=== PATIENT | male | born 1955 | race Caucasian/White ===

== ENCOUNTER 2023-06-27 09:00 | Outpatient (OUT) | payer MEDICARE, SELFPAY ==
--- NOTE | 2023-06-27 09:10 | ECG_ITS ---
The [facility] Test Date: 2023-06-27 Pat Name: CALEB ACUNA Department: Room: - Gender: Male [employer]: : 1955 Requested By: ОЛЬГА PATEL Order Number: [id number] Reading MD: MATTI HUMPHRIES Measurements Intervals Alpha Rate: 63 P: 46 NC: 211 QRS: 26 QRSD: 113 T: 47 QT: 463 QTc: 477 Interpretive Statements SINUS RHYTHM WITH FIRST DEGREE AV BLOCK INCOMPLETE RIGHT BUNDLE BRANCH BLOCK [90+ ms QRS DURATION, TERMINAL R IN V1/V2, 40+ ms S IN I/aVL/V4/V5/V6] PROLONGED QT INTERVAL No previous ECG available for comparison Electronically Signed On 06-28-2023 7:01:55 EST by MATTI HUMPHRIES
--- NOTE | 2023-06-27 09:59 | P.GSHP_ITS ---
History of Present Illness History of Present Illness Chief complaint: prostate cancer Narrative: Patient presents for preadmission testing. The patient states he has prostate cancer and is completed radiation is now scheduled for radium seed implant. He states he has not been having any dysuria or hematuria but continues to have nocturia. He denies nausea, vomiting, fever, or any other complaints. Review of Systems ROS Narrative REVIEW OF SYSTEMS: Negative except as stated in HPI, ten or more systems reviewed. Constitutional: No fever , chills, weakness ENT: No sore throat or epistaxis Cardiovascular: No edema, chest pain, palpitations, or activity intolerance Respiratory: No shortness of breath, cough, or wheezing Musculoskeletal: No joint pain or swelling Gastrointestinal: No abdominal pain, constipation, diarrhea, or vomiting Genitourinary: No dysuria or hematuria Neurological: No numbness, tingling, weakness, or headache Psychiatric: No mood changes [facility] History (Updated 06/27/23 @ 09:36 by Sonia Moreno NP) Arthritis ?M19.90 - Unspecified osteoarthritis, unspecified site (ICD-10) Asthma ?J45.909 - Unspecified asthma, uncomplicated (ICD-10) Back pain ?M54.9 - Dorsalgia, unspecified (ICD-10) Bronchitis ?J40 - Bronchitis, not specified as acute or chronic (ICD-10) COVID-19 (05/29/23) ?U07.1 - COVID-19 (ICD-10) Hypertension ?I10 - Essential (primary) hypertension (ICD-10) Peripheral vascular disease ?I73.9 - Peripheral vascular disease, unspecified (ICD-10) Pneumonia ?J18.9 - Pneumonia, unspecified organism (ICD-10) Prostate cancer ?C61 - Malignant neoplasm of prostate (ICD-10) Seasonal allergies ?J30.2 - Other seasonal allergic rhinitis (ICD-10) Snores ?R06.83 - Snoring (ICD-10) Surgical History (Updated 06/27/23 @ 09:32 by Sonia Moreno NP) History of appendectomy ?Z90.49 - Acquired absence of other specified parts of digestive tract (ICD- 10) History of colonoscopy ?Z98.890 - Other specified postprocedural states (ICD-10) History of esophagogastroduodenoscopy (EGD) ?Z98.890 - Other specified postprocedural states (ICD-10) Hx of prostate biopsy ?Z98.890 - Other specified postprocedural states (ICD-10) Family History (Updated 06/27/23 @ 09:36 by Sonia Moreno NP) Other Family history of coronary artery disease Family history of diabetes mellitus Family history of heart disease Family history of myocardial infarction Social History (Updated 06/27/23 @ 09:31 by Sonia Moreno NP) Within the past year, how often did you have a drink containing alcohol: never Score interpretation: A score less than 4 is consistent with normal alcohol consumption. Smoking status: Former smoker Non-prescribed substance use: denies use Highest level of school completed/degree received: high school graduate Meds Home Medications and Allergies Home Medications Medication Instructions Recorded Confirmed Type albuterol sulfate 2.5 mg/3 mL 2.5 mg inhalation Q6H PRN 06/27/23 06/27/23 History (0.083 %) solution for nebulization shortness of breath or wheezing albuterol sulfate 90 mcg/actuation 2 inh inhalation Q4H PRN shortness 06/27/23 06/27/23 History aerosol inhaler of breath or wheezing allopurinol 100 mg tablet 100 mg PO DAILY 06/27/23 06/27/23 History aspirin 81 mg tablet,delayed 81 mg PO DAILY 06/27/23 06/27/23 History release (Adult Aspirin Regimen) calcium 600 mg capsule mg PO 06/27/23 History cholecalciferol (vitamin D3) 10 10 mcg PO DAILY 06/27/23 06/27/23 History mcg (400 unit) capsule enalapril maleate 10 mg tablet 10 mg PO Q24H 06/27/23 06/27/23 History fluticasone propionate 110 2 inh inhalation Q12H PRN wheezing 06/27/23 06/27/23 History mcg/actuation HFA aerosol inhaler (Flovent HFA) levocetirizine 5 mg tablet (24HR 5 mg PO DAILY 06/27/23 06/27/23 History Allergy Relief) lutein 20 mg capsule 20 mg PO DAILY 06/27/23 06/27/23 History montelukast 10 mg tablet 10 mg PO DAILY 06/27/23 06/27/23 History multivitamin (Daily Multi-Vitamin 1 tab PO DAILY 06/27/23 06/27/23 History tablet) omega 6-hpy-tve-fish oil 1,000 mg 1 cap PO DAILY 06/27/23 06/27/23 History (120 mg-180 mg) capsule (Fish Oil) tamsulosin 0.4 mg capsule 0.4 mg PO BID 06/27/23 06/27/23 History Allergies Allergy/AdvReac Type Severity Reaction Status Date / Time Penicillins Allergy Unknown Verified 06/27/23 09:25 acetaminophen [From Percocet] Allergy itch Verified 06/27/23 09:25 oxycodone [From Percocet] Allergy itch Verified 06/27/23 09:25 Exam Narrative Exam Narrative: Constitutional: Awake, alert, comfortable, well-appearing, nontoxic, interactive, vital signs as charted Head: Normocephalic, atraumatic Neck: Supple, normal appearance, normal range of motion, no meningeal signs, no lymphadenopathy Respiratory: No respiratory distress, breath sounds clear Cardiovascular: Regular rate and rhythm, strong and regular heart tones Abdomen: Nontender, normal bowel sounds, soft, no CVA tenderness Musculoskeletal: Normal gait, no swelling or edema Skin: No rashes or induration, no lesions, only visible skin inspected Neuro: No neurological deficits, normal sensation Psychiatric: Oriented ?3, normal affect Assessment and Plan Assessment and Plan (1) Prostate cancer: Plan [place] seed implant scheduled with Dr. Huffman 07/11/2023.
[2023-06-27 10:05] LABS: Hematocrit 34.9 % (42.0-54.0); Hemoglobin 11.8 g/dL (14.0-18.0); Mean Corpuscular HGB Conc 33.8 g/dL (29.9-35.2); Mean Corpuscular Hemoglobin 30.9 pg (25.9-34.0); Mean Corpuscular Volume 91.4 fL (80.0-94.0); Mean Platelet Volume 8.7 fL (9.5-13.5); Platelet Count 159 10^3/uL (150-450); Red Blood Count 3.82 10^6/uL (4.70-6.10); Red Cell Distribution Width 13.6 % (11.0-15.0); White Blood Count 7.5 10^3/uL (4.0-11.0)
[2023-06-27 10:19] LABS: Partial Thromboplastin Time 26.3 sec (22.3-36.2); Prothrombin Time 9.8 sec (9.0-11.6)
[2023-06-27 10:21] LABS: INR <0.93
[2023-06-27 10:33] LABS: Band Neutrophils Absolute 0.1 10^3/uL (0.0-0.3); Lymphocytes Absolute Manual 0.37 10^3/uL (1.20-3.80); Monocytes Absolute Manual 0.82 10^3/uL (0.30-0.80); Segmented Neut Absolute Manual 5.32 10^3/uL (1.4-6.5)
[2023-06-27 10:40] LABS: BUN Creatinine Ratio 15.3; Calcium 8.8 mg/dL (8.5-10.1); Chloride 103 mmol/L (98-107); Estimated GFR (African America >60 (>=60); Estimated GFR (Non-African Ame >60 (>=60); Glucose 101 mg/dL (74-106); Sodium 139 mmol/L (136-145)
== END 2023-06-27 09:01 | disposition home or self-care (01) ==
LOC: PST 09:04
PROVIDERS: PCP Family Medicine; Visit Provider Urology
DX: Z01.810 Encounter for preprocedural cardiovascular examination (principal); Z01.812 Encounter for preprocedural laboratory examination; N40.1 Benign prostatic hyperplasia with lower urinary tract symptoms; N21.0 Calculus in bladder
CPT/HCPCS: 36415; 80048; 85027; 85610; 85730; 93005; G0463

== ENCOUNTER 2023-07-11 06:54 | Day surgery (SDC) | payer MEDICARE, SELFPAY ==
[2023-06-27 09:49] VITALS: BP 168/94; PULSE 67; RESP 20; TEMP 36.4; O2SAT 96; BMI 43.1
[2023-07-11] VITALS (14 sets, daily range): BP systolic 119–146; BP diastolic 67–88; PULSE 71–83; RESP 5–23; TEMP 36–36.1; O2SAT 85–100; BMI 41.1
--- NOTE | 2023-07-11 | XR_ITS ---
The [address] [address] Patient Name: CALEB ACUNA MRN: [id number] date: 1955 Sex: M Assigned Patient Location: [facility] Current Patient Location: Accession/Order Number: [id number] Exam Date: 07/11/2023 08:20 Report Date: 07/12/2023 09:07 At the request of: ОЛЬГА PATEL Procedure: XR pelvis 1-2V EXAMINATION: XR pelvis 1-2V HISTORY: Prostate Seed Implant COMPARISON: No relevant comparison available. FINDINGS: Iodinated contrast within the urinary bladder. Multiple metallic foreign bodies project over the pubic symphysis consistent with prostate seed implantation XR/XR pelvis 1-2V IMPRESSION: Prostate seed implantation Electronically authenticated by: CALEB CARR Date: 07/12/2023 09:07
[2023-07-11] MEDS: LACTATED RINGER'S SOLUTION 1,000 ML 50 ML IV (07:26)
[2023-07-11] MEDS: CIPROFLOXACIN IN 5 % DEXTROSE 400 MG/200 ML PIGGYBACK 200 MG IV (07:57)
[2023-07-11] MEDS: IOHEXOL 240 MG/ML - 50 ML VIAL INJ (08:20)
--- NOTE | 2023-07-11 09:10 | PM.URSON ---
Urology Surgery Operative Note Operative Note Procedure Date: 07/11/23 Time Out Performed: yes Pre-op Diagnosis: Prostate cancer Post-op Diagnosis: same as pre-op Procedures performed: 1. Palladium-103 prostate seed implantation. 2. Cystoscopy. Anesthesia: General-LMA Primary Surgeon: Yevgeniy Huffman Complications: None Estimated blood loss (mL): 5 Specimens: None Drains: 18 Yoruba Fernandez catheter in the bladder Indications for Procedures: This gentleman has prostate cancer with a Lisa score of 4+3 = 7 in 6 cores and 3+3 equal 6 in 3 cores. His PSA was 6.2. His metastatic workup was negative. He saw Dr. Morfin the radiation oncologist and external beam therapy with a boost of seed implantation was decided for his treatment. He underwent 45 Nath of external beam. He he now presents for palladium-103 prostate seed implantation and cystoscopy. He has signed an informed consent for these procedures after risks were explained. Detailed description of Procedure: The patient was brought to the operating room and placed on the operating room table in the supine position. SCDs were placed on the lower extremities and turned on and functioning during the entire case. Timeout was done by all parties in the room. We all agreed upon the patient's identification and the planned procedures for this patient. Genn. anesthesia was then administered. The patient was then repositioned into the modified dorsal lithotomy position. All pressure points were satisfactorily padded. Genitalia were sterilely prepped and draped in usual fashion. We started by prepping the genitalia and perineum in the usual fashion. The scrotum was sutured to the inner thigh with 2-0 silk to expose the perineal surface. The bladder was filled with dilute contrast and saline and the catheter was removed. The implant bracket was brought to the foot of the table. The ultrasound probe was passed per rectum. The grid was placed over the perineum. The positioning was verified to match the preop simulation so as to accurately facilitate the treatment plan. At this time with fluoroscopic and ultrasonic assistance needles were passed trans perineally into the prostate and seeds were placed in the prostate in the predetermined location so as to execute the treatment plan. A total of 50 seeds were placed in the prostate delivering a dose of 100 Nath. Upon completion of the seed implantation, live dosimetry was done on the table. We had excellent coverage throughout. After the implant bracket and grid and ultrasound probe were removed from the foot of the table I then passed a 22 Yoruba Olympus cystoscope per urethra and into the bladder. There was no evidence of any protruding seeds or spacers from the prostatic urethra. There were none of these items within the bladder either. The scope was then removed. I then placed an 18 Yoruba Fernandez catheter in the bladder and clear urine drained. He was then transferred to a [facility] bed and wheeled to PACU in stable condition. He will be discharged to home later today with a prescription for Vesicare 10 mg daily #7 and Cipro 500 mg twice daily #14. Follow-up will be in 1 week for catheter removal. Other Provider present: Yes (Dr. Marquise Morfin)
--- NOTE | 2023-07-11 09:39 | PC.NURSE ---
RECHECKED PATIENT'S TEMPERATURE DUE TO IT BEING LOW UPON ADMISSION TO pacu 96.9
--- NOTE | 2023-07-11 09:43 | PC.NURSE ---
920 applied oxygen due to low saturation. at 930 removed oxgen as he was more awake. oxygen saturation is 94% and above on room air
== END 2023-07-11 10:55 | disposition home or self-care (01) ==
PROVIDERS: PCP Family Medicine; Visit Provider Urology
PROC: (CPT 55875; principal; 2023-07-11 08:00)
DX: C61 Malignant neoplasm of prostate (principal); M19.90 Unspecified osteoarthritis, unspecified site; R97.20 Elevated prostate specific antigen [PSA]; M10.9 Gout, unspecified; I10 Essential (primary) hypertension; Z79.01 Long term (current) use of anticoagulants; N40.1 Benign prostatic hyperplasia with lower urinary tract symptoms; Z79.82 Long term (current) use of aspirin; R35.1 Nocturia; R35.0 Frequency of micturition; E66.01 Morbid (severe) obesity due to excess calories; Z68.41 Body mass index [BMI] 40.0-44.9, adult; Z87.891 Personal history of nicotine dependence; Z86.16 Personal history of COVID-19
CPT/HCPCS: 55875; 36415; 72170; 76965; 77290; 77332; 77778; C1715; C2635; C2640; J2704; Q9966